=== PATIENT | female | born 1950 | race African-American/Black ===

== ENCOUNTER 2022-05-06 16:30 | Emergency (ER) | payer MEDICARE, MEDICAID ==
[~2022-05-06] VITALS: Ht 165.1 cm; Wt 82.0 kg
[2022-05-06] MEDS ORDERED: SODIUM CHLORIDE 0.9% 1,000 ML IV ONE (17:30)
[2022-05-06 18:50] LABS: BASOPHILS % 0.2 % (0.0-2.0); EOSINOPHILS % 0.1 % (0.0-5.0); HEMATOCRIT. 41.6 % (36.0-48.0); HEMOGLOBIN. 12.9 g/dL (12.0-16.0); LYMPHOCYTES % 9.3 % (20.0-50.0); MEAN CORPUSCULAR HEMOGLOBIN 21.9 pg (28.0-32.0); MEAN CORPUSCULAR VOLUME 70.3 fL (81.0-99.0); MEAN PLATELET VOLUME 10.4 fl (7.4-10.4); MONOCYTES % 5.4 % (2.0-8.0); PLATELET 198 x1000/uL (130-400); RED BLOOD CELL COUNT 5.92 mill/uL (4.2-5.4); RED CELL DISTRIBUTION WIDTH 15.7 % (11.6-14.6)
[2022-05-06 19:00] LABS: CHLORIDE 112 mEq/L (98-107)
[2022-05-07 14:21] VITALS: BP 140/79
== END 2022-05-07 14:21 | disposition home or self-care (01) ==
LOC: ER 16:30
DX: R42 Dizziness and giddiness (principal); R51.9 Headache, unspecified; Z98.890 Other specified postprocedural states
CPT/HCPCS: 36415; 70450; 80053; 82962; 84484; 85025; 93005; 96360; 99285; J7030

== ENCOUNTER 2022-05-07 21:16 | Emergency (ER) | payer MEDICARE, MEDICAID ==
[~2022-05-07] VITALS: Ht 167.6 cm; Wt 102.0 kg
[2022-05-08 02:22] VITALS: BP 126/64
== END 2022-05-08 16:33 | disposition home or self-care (01) ==
LOC: ER 21:16
DX: Z04.89 Encounter for examination and observation for other specified reasons (principal); Z59.02 Unsheltered homelessness; H54.8 Legal blindness, as defined in USA
CPT/HCPCS: 99281